=== PATIENT | male | born 1960 | race Caucasian/White ===

== ENCOUNTER 2017-07-30 08:20 | Day surgery (SDC) | payer OTHER ==
--- NOTE | 2017-07-23 10:11 | EKG REPORT ---
SEVERITY:- NORMAL ECG - SINUS RHYTHM : Confirmed by: Amol Pascual 23-Jul-2017 10:10:41
[2017-07-23 10:34] LABS: APPEARANCE,URINE CLEAR; BILIRUBIN,URINE NEGATIVE (NEGATIVE); COLOR,URINE YELLOW; GLUCOSE, URINE >=500 mg/dL (NEGATIVE); KETONES,URINE TRACE mg/dL (NEGATIVE); LEUKOCYTE ESTERASE,URINE NEGATIVE (NEGATIVE); NITRITE,URINE NEGATIVE (NEGATIVE); PROTEIN,URINE NEGATIVE (NEGATIVE); URINE SPECIFIC GRAVITY 1.029; UROBILINOGEN,URINE NEGATIVE mg/dL (<2.0)
[2017-07-23 11:02] LABS: HEMOGLOBIN 13.6 g/dL (13.5-17.0); MEAN CORPUSCULAR HEMOGLOBIN 26.4 pg (27.0-33.4); MEAN CORPUSCULAR HGB CONC 33.1 g/dL (32.0-36.0); MEAN CORPUSCULAR VOLUME 80 fl (80-97); PLATELET COUNT 309 10^3/uL (150-450); RED BLOOD COUNT 5.15 10^6/uL (4.35-5.55); RED CELL DISTRIBUTION WIDTH 15.6 % (11.5-14.0); WHITE BLOOD COUNT 7.5 10^3/uL (4.0-10.5)
[2017-07-23 11:45] LABS: ANION GAP 13 (5-19); BLOOD UREA NITROGEN 20 mg/dL (7-20); CALCIUM 9.4 mg/dL (8.4-10.2); CARBON DIOXIDE 25 mmol/L (22-30); CHLORIDE 103 mmol/L (98-107); GLUCOSE 210 mg/dL (75-110); POTASSIUM 4.9 mmol/L (3.6-5.0); SODIUM 141.3 mmol/L (137-145)
--- NOTE | 2017-07-23 17:11 | RADIOLOGY REPORT (SQ) ---
EXAM DESCRIPTION: CHEST PA/LATERAL COMPLETED DATE/TIME: 07/23/2017 5:04 pm REASON FOR STUDY: PRE OP S43.431A SUPERIOR GLENOID LABRUM LESION OF RIGHT SHOULDER, I M75.111 INCO MPLETE ROTATR-CUFF TEAR/RUPTR OF R SHOULDER, NOT COMPARISON: None. NUMBER OF VIEWS: Two view. TECHNIQUE: Frontal and lateral radiographic views of the chest acquired. LIMITATIONS: None. FINDINGS: LUNGS AND PLEURA: No opacities, masses or pneumothorax. No pleural effusion. MEDIASTINUM AND HILAR STRUCTURES: No masses. No contour abnormalities. HEART AND VASCULAR STRUCTURES: Heart enlarged without failure. Aorta normal for age. BONES: No acute findings. HARDWARE: None in the chest. OTHER: No other significant finding. IMPRESSION: CARDIAC ENLARGEMENT WITHOUT FAILURE. TECHNICAL DOCUMENTATION: JOB ID: [id number] [employer]- All Rights Reserved Reading location - IP/workstation name: [email or web address]
[~2017-07-30 08:20] MED LIST: CEFAZOLIN SODIUM 2 GM in DEXTROSE 5%-WATER 100 ML IV PRN; DEXAMETHASONE SOD PHOSPHATE INJ 4 MG/1 ML VIAL ONE; GLYCOPYRROLATE INJ 0.4 MG/2 ML VIAL ONE; LACTATED RINGERS 1000 ML IV PRN; LIDOCAINE 0.5% INJ-PF (5 MG/ML) 50 ML SDV SUBCUT PRN; LIDOCAINE 2% INJ-PF (20 MG/ML) 2 ML AMPUL ONE; NEOSTIGMINE METHYLSULFATE 10 MG/10 ML VIAL ONE; ONDANSETRON HCL INJ/PF 4 MG/2 ML SDV ONE; ROCURONIUM BROMIDE INJ 50 MG/5 ML VIAL IV ONE; SUCCINYLCHOLINE CHLORIDE INJ 200 MG/10 ML VIAL ONE
[2017-07-30] MEDS ORDERED: EPINEPHRINE INJ/PF 1 MG/1 ML AMPULE ONE (10:14)
[2017-07-30] MEDS ORDERED: BUPIVACAINE HCL 0.5 % INJ/PF 30 ML SDV ONE (10:14)
[2017-07-30] MEDS ORDERED: FENTANYL CITRATE INJ/PF 250 MCG/5 ML AMPULE ONE (10:15)
[2017-07-30] MEDS ORDERED: PROPOFOL INJ 200 MG/20 ML VIAL IV ONE (10:16)
[2017-07-30] MEDS ORDERED: MORPHINE SULFATE 10 MG/ML INJ ONE (10:16)
[2017-07-30] MEDS ORDERED: MIDAZOLAM 2 MG/2 ML INJ ONE (10:16)
[2017-07-30] MEDS ORDERED: ACETAMINOPHEN 100 ML IV ONE (10:16)
[2017-07-30] MEDS ORDERED: PROMETHAZINE HCL INJ 25 MG/1 ML VIAL IV PRN (11:54)
[2017-07-30] MEDS ORDERED: MEPERIDINE HCL/PF INJ 25 MG/1 ML DISP.SYRIN IV PRN (11:54)
[2017-07-30] MEDS ORDERED: MORPHINE SULFATE 10 MG/ML INJ IV PRN (11:54)
[2017-07-30] MEDS ORDERED: FENTANYL CITRATE INJ/PF 100 MCG/2 ML AMPUL IV PRN (11:54)
[2017-07-30] MEDS ORDERED: DIPHENHYDRAMINE HCL 50 MG/ML VIAL IV PRN (11:54)
--- NOTE | 2017-07-30 12:42 | Discharge Summary ---
Discharge Summary (SDC) - Discharge Final Diagnosis: Right rotator cuff repair and biceps tenodesis Date of Surgery: 07/30/17 Discharge Date: 07/30/17 Condition: Good Treatment or Instructions: Patient is instructed to follow up in 10-14 days. Patient instructed to remove dressing in 4 days then can shower and apply Band- Aids as needed. Patient to wear sling for comfort but okay to remove for shower and pendulum exercises. Pendulum exercises are instructed to be done 3 times a day ideally with breakfast, lunch, dinners and showers. Patient instructed to call if there is any signs of redness or drainage fevers or chills. Referrals: COLIN JOYA DO [Primary Care Provider] - Discharge Diet: As Tolerated Respiratory Treatments at Home: Deep Breathing/Coughing Discharge Activity: No Driving, No Lifting/Push/Pulling, Slowly Increase Activity, Walk Frequently Home Care Assistance: None Needed Report the Following to Your Physician Immediately: Shortness of Breath, Vomiting, Increase in Pain, Fever over 101 Degrees, Unusual Bleeding, Redness, Swelling, Warmth, Increased Soreness, Drainage-Girard, Drainage-Green, Drainage- Foul Smelling
[2017-07-30] MEDS ORDERED: HYDROMORPHONE HCL 2 MG TABLET PO PRN (12:43)
--- NOTE | 2017-07-30 12:53 | Operative Report ---
Operative Report DATE OF SURGERY: 07/30/17 PREOPERATIVE DIAGNOSIS: Partial-thickness rotator cuff and SLAP tear of the right shoulder POSTOPERATIVE DIAGNOSIS: Same OPERATION: Right shoulder arthroscopic with her cuff repair and subpectoralis biceps tenodesis SURGEON: SAI UMANA ANESTHESIA: GA TISSUE REMOVED OR ALTERED: Portion of the long head of the biceps COMPLICATIONS: None ESTIMATED BLOOD LOSS: 20 mL INTRAOPERATIVE FINDINGS: High-grade partial-thickness tear of the supraspinatus tendon and a degenerative type II SLAP tear PROCEDURE: IMPLANTS: 5.5 bio composite swivel lock DESCRIPTION OF PROCEDURE: Patient was brought to the operating room placed in supine position. After successfully induced and intubated the patient patient was placed in the beachchair position the head and endotracheal tube was secured appropriately. The right shoulder was prepped and draped in a normal surgical fashion. A timeout was done identifying the right shoulder as the correct site. After inflating the glenohumeral joint with sterile saline solution an 11 blade was used to establish the posterior portal. The arthroscope was introduced and return of fluid was seen showing that we successfully penetrated the glenohumeral joint. With the use of spinal needle we're able to catherine the anterior portal and using an 11 blade able to establish anterior portal. A cannula was introduced through the anterior portal. At this point diagnostic scope was done. At first glance patient had a type II SLAP tear and was probed showing the detachment. Also when I turned my attention to the rotator cuff was evidence of showing the partial-thickness articular sided rotator cuff tear. The articulation was intact. No loose bodies. A lateral portal was established 11 blade. Passport cannula was introduced to secure the lateral portal. 4.0mm shaver was introduced and was used to debride edges of the tear as well as bur the bone for preparation of anchor placement. Once I was satisfied with the preparation I then redirected my scope into the subacromial space. At this point we were able to visualize the bursal sided rotator cuff tear therefore we completed the tear connecting the high-grade partial bursal sided tear with the partial tearing of the anterior portion of the supraspinatus tendon. At this point through a lateral portal we were able to use a scorpion and passed the 2 strands of the fiber tape through the small rotator cuff tear that was created. Bicomposite swivel lock were used for the lateral row fixation. Lateral aspect of the humerus was then cleaned off with a shaver and electrocautery. Once identified placement of the swivel lock, I proceeded to use my awl to do my hole. This this point the sutures were adequately tensioned and secured. Swivel lock was inserted and screwed in, securing and increasing the footprint of the rotator cuff repair. Remaining strands were cut with the arthroscopic cutter. Final pictures were taking showing my repair. At this point fluid from the shoulder was removed camera and instruments were all removed. I turned my attention to the subpectoralis biceps tenodesis portion of the case. I used a 15 blade and did a inch and a half incision on the anterior aspect of the arm adjacent to the axillary fold. I used electrocautery to obtain hemostasis of the subcutaneous tissue bleed. I used Metzenbaum scissors and 2 pierced and split the fascial tissue covering the biceps and deltoid. I used then combination of my finger and 90 clamp to palpate the long head of biceps and bicipital groove and capturing hook the tendon that was tenotomized. This was pulled through my incision successfully. I used a fiber loop to then secure my muscular tendinous portion which was approximately 2 cm. The remaining biceps was cut and discarded. The loop was, and the 2 strands were then fed through the tenodesis button. These were secured and then I proceeded to use Homans to expose the side of the humeral shaft and was able to used a 4 mm spade tip guidepin to drill the anterior cortex. This was removed and then the loaded button was then inserted and then removing the disposable portion was able to flip the button and securing the biceps onto the anterior cortex of the humerus. Half hitch knots were done to further secure the biceps. Remaining strand was cut with a fiber wire scissors. I used 0 Vicryl to approximate the subcutaneous tissue. I used 3-0 nylon to do closure of my incision. I proceeded to close my portal sites with 3 -0 nylon. Xeroform 4 x 4 dressing followed by ABDs pads and Medipore tape was applied. Patient was placed in a sling and returned to supine position where he was successfully extubated and taken to PACU in stable condition.
[2017-07-30] MEDS: HYDROMORPHONE HCL INJ/PF 2 MG/ML AMPULE ONE ×3 (13:00→13:40)
[2017-07-30] MEDS ORDERED: HYDROMORPHONE HCL INJ/PF 2 MG/ML AMPULE ONE (13:29)
[2017-07-30] MEDS ORDERED: PROMETHAZINE HCL INJ 25 MG/1 ML VIAL ONE (14:06)
[2017-07-30] MEDS ORDERED: KETOROLAC TROMETHAMINE INJ/PF 30 MG/1 ML SDV ONE (14:06)
[2017-07-30 16:38] VITALS: BP 117/79
== END 2017-07-30 16:10 | disposition home or self-care (01) ==
LOC: OROUT 08:20
PROVIDERS: ATTEND Orthopaedic Surgery
DX: S43.431A Superior glenoid labrum lesion of right shoulder, initial encounter (principal); X58.XXXA Exposure to other specified factors, initial encounter; M75.111 Incomplete rotator cuff tear or rupture of right shoulder, not specified as traumatic; M79.7 Fibromyalgia; I20.9 Angina pectoris, unspecified; G47.33 Obstructive sleep apnea (adult) (pediatric); I10 Essential (primary) hypertension; F17.210 Nicotine dependence, cigarettes, uncomplicated; Z79.899 Other long term (current) drug therapy; Z88.8 Allergy status to other drugs, medicaments and biological substances
CPT/HCPCS: 93005; 36415; 82962; 85027; 80048; 81001; 71046; 93010; 29827; 24340; C1713 ×2; J2250; J3490 ×3; J0690; J1100; J0171; J3010; J1885; J2270; J1170; J2550; J0330; J2405; J2704; J0131; 1630

== ENCOUNTER 2017-08-02 20:19 | Emergency (ER) | payer OTHER ==
--- NOTE | 2017-08-02 21:17 | ER Document Report ---
ED Extremity Problem, Upper - General Chief Complaint: Arm Pain/ infection Stated Complaint: ARM PAIN Time Seen by Provider: 08/02/17 21:07 Mode of Arrival: Ambulatory Information source: Patient TRAVEL OUTSIDE OF THE [place] IN LAST 30 DAYS: No - HPI Patient complains to provider of: Other - Left arm pain Recent injury: No Notes: Patient is here with complaints of left arm pain. The patient had right shoulder surgery done 5 days ago. He had an IV placed in his left AC. Today he noticed redness, swelling, tenderness to the left AC area. No swelling to the remainder of the arm. No chest pain or shortness of breath. No fever. No nausea, vomiting, diarrhea. No numbness, Gianni, weakness. Pain is worse with touching the area and flex the arm, better with rest. No other complaints at this time. He states that his right shoulder feels great. - Related Data Allergies/Adverse Reactions: piroxicam [From Feldene] Allergy (Severe, Verified 07/23/17 11:47) Blisters Past Medical History - Social History Smoking Status: Unknown if Ever Smoked Family History: Reviewed & Not Pertinent - Past Medical History Cardiac Medical History: Reports: Hx Hypertension Denies: Hx Coronary Artery Disease, Hx Heart Attack Pulmonary Medical History: Reports: Hx Bronchitis Denies: Hx Asthma, Hx COPD, Hx Pneumonia Neurological Medical History: Denies: Hx Cerebrovascular Accident, Hx Seizures Musculoskeltal Medical History: Denies Hx Arthritis - Immunizations Hx Diphtheria, Pertussis, Tetanus Vaccination: Yes Review of Systems - Review of Systems -: Yes All other systems reviewed and negative Physical Exam - Vital signs Vitals: Temp Pulse Resp BP Pulse Ox 99.6 F 112 H 20 156/84 H 95 08/02/17 20:58 08/02/17 20:58 08/02/17 20:58 08/02/17 20:58 08/02/17 20:58 - Notes Notes: GENERAL: alert, cooperative, nontoxic, no distress. HEAD: normocephalic, atraumatic EYES: conjunctiva pink without discharge, no external redness or swelling. EARS: no external swelling, no external redness NOSE: atraumatic, no external swelling MOUTH/THROAT: mucous membranes moist and pink, posterior pharynx without erythema, swelling, exudate. No trismus or drooling. NECK: soft, supple, full range of motion, no meningismus. CHEST: no distress, lungs clear and equal throughout. No wheezing, rales, rhonchi. CARDIAC: regular rate and rhythm, no murmur, normal capillary refill, normal pulses. No peripheral edema noted. ABDOMEN: Soft, nontender. BACK: full range of motion, no CVA tenderness. EXTREMITIES: full range of motion of all extremities. Patient is noted to have a red tender swollen area to the left AC near the site of previous IV. No fluctuance. No drainage. Normal pulse and sensation distally. Compartments are soft. NEURO: alert and oriented x 3, no focal deficits, full range of motion of all extremities. PYSCH: appropriate mood, affect. Patient is cooperative. SKIN: pink, warm, dry, no rash. Course - Re-evaluation Re-evalutation: 08/02/17 22:04 Patient is nontoxic appearing with stable vitals. The patient is here with complaints of red swollen area in the left AC where he had replaced 4-5 days ago when having right shoulder surgery. He denies any fever. Complains of some mild pain in the area. No chest pain or shortness of breath. He denies any numbness, tingling, weakness. On exam he is noted to have a small area of redness and tenderness with mild swelling to the left AC near the site of recent IV. There is no fluctuance. Normal pulse and sensation distally. No significant cellulitis. Compartments are soft. Venous Doppler of the left upper extremity shows no DVT, no fluid collection or abscess. There is sign of thrombus in the cephalic vein consistent with superficial thrombophlebitis. Patient is already on an aspirin as well as Celebrex. At this point the patient can be discharged home with instructions to apply warm compresses to the sore area and keep a close eye on it. He can follow-up if he develops any worsening pain, fever, redness, numbness, tingling, weakness, or for any further concerns. The patient's emergency department workup and current diagnosis were explained to the patient and or family. Follow-up instructions were provided. Medications if prescribed were discussed. Instructions for when to return to the emergency department including specific worrisome symptoms were discussed with the patient and/or family. The patient is noted to have elevated blood pressure during today's emergency department visit. The patient was informed of this finding. The patient was instructed that this may be related to pre-hypertension and requires further evaluation with a primary care provider. The patient has no hypertensive symptoms at this time. - Vital Signs Vital signs: Temp Pulse Resp BP Pulse Ox 99.6 F 112 H 20 156/84 H 95 08/02/17 20:58 08/02/17 20:58 08/02/17 20:58 08/02/17 20:58 08/02/17 20:58 - Diagnostic Test Radiology reviewed: Image reviewed, Reports reviewed - Venous Doppler of the left upper extremity shows clot within the cephalic vein consistent with superficial thrombophlebitis. No DVT, no abscess. Discharge - Discharge Clinical Impression: Arm thromboembolism, superficial, acute Qualifiers: Laterality: left Qualified Code(s): I82.612 - Acute embolism and thrombosis of superficial veins of left upper extremity Condition: Stable Disposition: HOME, SELF-CARE Instructions: Superficial Phlebitis ([facility]) Additional Instructions: Continue taking her Celebrex as well as her aspirin. Apply warm compresses to the sore area. If not better in 1 week, sooner for worsening pain, fever, redness, drainage, numbness, tingling, weakness, any further concerns. Your blood pressure was elevated during today's visit. Have this rechecked with your doctor. Forms: Elevated Blood Pressure
--- NOTE | 2017-08-02 21:55 | RADIOLOGY REPORT (SQ) ---
EXAM DESCRIPTION: VENOUS UNILATERAL UPPER COMPLETED DATE/TIME: 08/02/2017 9:44 pm REASON FOR STUDY: LEFT ARM SWELLING COMPARISON: None. TECHNIQUE: Dynamic and static brennan scale and color images acquired of the left arm venous system. Se lected spectral images acquired with additional compression and augmentation maneuvers. The contralat eral subclavian vein and internal jugular vein were also imaged. Images stored on PACS. LIMITATIONS: None. FINDINGS: INTERNAL JUGULAR VEIN: Normal phasicity, compression, augmentation. No visualized echogeni c material on brennan scale. No defects on color images. Comparison opposite side normal. SUBCLAVIAN VEIN: Normal compression, augmentation. No visualized echogenic material on brennan scale. No defects on color images. AXILLARY VEIN: Normal compression, augmentation. No visualized echogenic material on brennan scale. No d efects on color images. BRACHIAL VEIN: Normal compression, augmentation. No visualized echogenic material on brennan scale. No d efects on color images. BASILIC VEIN: Normal compression, augmentation. No visualized echogenic material on brennan scale. No de fects on color images. CEPHALIC VEIN: Thrombus in the antecubital fossa at the site of IV line. OTHER: No other significant finding. CONTRALATERAL SUBCLAVIAN VEIN AND INTERNAL JUGULAR VEIN: Normal phasicity, compression and augmentation. No visualized echogenic material on brennan scale. No de fects on color images. IMPRESSION: THROMBUS IN THE CEPHALIC VEIN IN THE ANTECUBITAL FOSSA AT THE SITE OF IV LINE. REMAINDE R OF THE VESSELS ARE PATENT. TECHNICAL DOCUMENTATION: JOB ID: [id number] [employer]- All Rights Reserved Reading location - IP/workstation name: [email or web address]
[2017-08-02 22:37] VITALS: BP 148/95
== END 2017-08-02 22:37 | disposition home or self-care (01) ==
LOC: ER 20:19
DX: I82.612 Acute embolism and thrombosis of superficial veins of left upper extremity (principal); M79.602 Pain in left arm; I10 Essential (primary) hypertension
CPT/HCPCS: 93971; 99284

== ENCOUNTER 2018-06-11 08:22 | Day surgery (SDC) | payer OTHER, MEDICARE ==
[2018-06-02 10:38] LABS: ABSOLUTE BASOPHILS # (AUTO) 0.1 10^3/uL (0.0-0.2); ABSOLUTE EOSINOPHILS # (AUTO) 0.3 10^3/uL (0.0-0.6); ABSOLUTE LYMPHOCYTES (AUTO) 1.9 10^3/uL (0.5-4.7); ABSOLUTE MONOCYTES (AUTO) 0.7 10^3/uL (0.1-1.4); ABSOLUTE NEUT (AUTO) 5.1 10^3/uL (1.7-8.2); BASOPHILS % (AUTO) 1.4 % (0-2); EOSINOPHILS % (AUTO) 3.2 % (0-6); LYMPHOCYTES % (AUTO) 23.5 % (13-45); MEAN CORPUSCULAR HEMOGLOBIN 28.9 pg (27.0-33.4); MEAN CORPUSCULAR HGB CONC 34.2 g/dL (32.0-36.0); MEAN CORPUSCULAR VOLUME 84 fl (80-97); MONOCYTES % (AUTO) 8.5 % (3-13); PLATELET COUNT 226 10^3/uL (150-450); RED BLOOD COUNT 5.22 10^6/uL (4.35-5.55); RED CELL DISTRIBUTION WIDTH 14.3 % (11.5-14.0); SEGMENTED NEUTROPHILS % (AUTO) 63.4 % (42-78); TOTAL CELLS COUNTED % (AUTO) 100 %
[2018-06-02 10:46] LABS: ANION GAP 8 (5-19); BLOOD UREA NITROGEN 21 mg/dL (7-20); CALCIUM 10.1 mg/dL (8.4-10.2); CARBON DIOXIDE 29 mmol/L (22-30); CHLORIDE 104 mmol/L (98-107); GLUCOSE 76 mg/dL (75-110); POTASSIUM 4.8 mmol/L (3.6-5.0); SODIUM 140.9 mmol/L (137-145)
--- NOTE | 2018-06-02 21:23 | EKG REPORT ---
SEVERITY:- NORMAL ECG - SINUS RHYTHM : Confirmed by: Nasima Glass MD 02-Jun-2018 21:22:54
[~2018-06-11 08:22] MED LIST changes: -CEFAZOLIN SODIUM 2 GM in DEXTROSE 5%-WATER 100 ML IV PRN; -DEXAMETHASONE SOD PHOSPHATE INJ 4 MG/1 ML VIAL ONE; -GLYCOPYRROLATE INJ 0.4 MG/2 ML VIAL ONE; -LIDOCAINE 2% INJ-PF (20 MG/ML) 2 ML AMPUL ONE; -NEOSTIGMINE METHYLSULFATE 10 MG/10 ML VIAL ONE; -ONDANSETRON HCL INJ/PF 4 MG/2 ML SDV ONE; -ROCURONIUM BROMIDE INJ 50 MG/5 ML VIAL IV ONE; -SUCCINYLCHOLINE CHLORIDE INJ 200 MG/10 ML VIAL ONE
[2018-06-11] MEDS ORDERED: METOCLOPRAMIDE HCL INJ/PF 10 MG/2 ML SDV ONE (11:10)
[2018-06-11] MEDS ORDERED: MIDAZOLAM 2 MG/2 ML INJ ONE ×2 (11:10→12:21)
[2018-06-11] MEDS ORDERED: ALBUTEROL SULFATE 0.083% NEB 2.5 MG/3 ML AMPUL NEB ONE (11:10)
[2018-06-11] MEDS ORDERED: FAMOTIDINE INJ/PF 20 MG/2 ML SDV IV ONE (11:10)
[2018-06-11] MEDS ORDERED: FENTANYL CITRATE INJ/PF 100 MCG/2 ML AMPUL ONE (12:21)
[2018-06-11] MEDS ORDERED: PROPOFOL INJ 200 MG/20 ML VIAL IV ONE (12:21)
[2018-06-11] MEDS ORDERED: BUPIVACAINE INJ/PF LIPOSOME/PF 266 MG/20 ML SDV ONE (12:32)
[2018-06-11] MEDS ORDERED: LIDOCAINE 2% JELLY 30 ML TUBE ONE (12:32)
[2018-06-11] MEDS ORDERED: BACITRACIN ZINC OINTMENT 15 GM ONE (12:32)
[2018-06-11] MEDS ORDERED: ONDANSETRON HCL INJ/PF 4 MG/2 ML SDV IV PRN (13:45)
[2018-06-11] MEDS ORDERED: DIPHENHYDRAMINE HCL 50 MG/ML VIAL IV PRN (13:45)
[2018-06-11] MEDS ORDERED: MORPHINE SULFATE 10 MG/ML INJ IV PRN (13:45)
[2018-06-11] MEDS ORDERED: PROMETHAZINE HCL INJ 25 MG/1 ML VIAL IV PRN ×2 (13:45)
[2018-06-11] MEDS ORDERED: MEPERIDINE HCL/PF INJ 25 MG/1 ML DISP.SYRIN IV PRN (13:45)
[2018-06-11] MEDS ORDERED: FENTANYL CITRATE INJ/PF 100 MCG/2 ML AMPUL IV PRN ×3 (13:45)
[2018-06-11] MEDS ORDERED: OXYCODONE-ACETAMINOPHEN 5-325 MG TABLET PO PRN ×2 (13:45)
[2018-06-11] MEDS: FENTANYL CITRATE INJ/PF 100 MCG/2 ML AMPUL ONE ×2 (13:55→14:00)
[2018-06-11] MEDS ORDERED: KETOROLAC TROMETHAMINE INJ/PF 30 MG/1 ML SDV ONE (13:57)
[2018-06-11] MEDS ORDERED: ACETAMINOPHEN 1,000 MG/100 ML RTUPB IV ONE (13:58)
[2018-06-11] MEDS ORDERED: LIDOCAINE 2% INJ-PF (20 MG/ML) 2 ML AMPUL ONE (14:18)
[2018-06-11] MEDS ORDERED: OXYCODONE HCL IR 5 MG TABLET ONE (14:39)
[2018-06-11] MEDS ORDERED: HYDROCODONE/ACETAMINOPHEN 10-325 MG TABLET PO PRN (14:50)
[2018-06-11 18:42] VITALS: BP 146/86
--- NOTE | 2018-06-12 10:37 | Discharge Summary ---
Discharge Summary (SDC) - Discharge Final Diagnosis: Internal hemorrhoids, external anal skin tags. Date of Surgery: 06/11/18 Discharge Date: 06/11/18 Condition: Stable Forms: ASU Anesthesia D/C Instruction, Discharge POC-Surgical Service Referrals: BRADLEY SCHULTE MD [ACTIVE STAFF] - (Follow up in 2 weeks. call for appt time.) [facility] [Primary Care Provider] - Discharge Diet: As Tolerated Respiratory Treatments at Home: Deep Breathing/Coughing, CPAP Discharge Activity: Activity As Tolerated, Balance Activity w/Rest Home Care Assistance: Provided by Family Report the Following to Your Physician Immediately: Shortness of Breath, Nausea, Vomiting, Increase in Pain, Fever over 101 Degrees, Unusual Bleeding, Redness, Swelling, Warmth, Drainage-Yellow, IV Site Infection Signs
--- NOTE | 2018-06-12 10:41 | Operative Report ---
Nonrecallable Operative Report DATE OF SURGERY: 06/11/18 PREOPERATIVE DIAGNOSIS: 1. External anal skin tags. 2. Internal hemorrhoids. POSTOPERATIVE DIAGNOSIS: Same as above OPERATION: 1. Rubber band ligation of internal hemorrhoids x4. 2. Excision of external anal skin tag x2 (12:00 and 3 o'clock position) SURGEON: BRADLEY SCHULTE ANESTHESIA: Spinal TISSUE REMOVED OR ALTERED: Anal skin tag x2 COMPLICATIONS: None apparent ESTIMATED BLOOD LOSS: Minimal PROCEDURE: Procedure in detail: After informed consent was obtained, the patient was brought to the operating room and laid in the right lateral decubitus position. The Ramesh-Stoll retractor was inserted into the rectum after an anal block was created with Exparel. Enlarged internal hemorrhoids were found circumferentially. 4 rubber bands were placed on the enlarged internal hemorrhoids. This portion of the procedure was then concluded. Patient had 2 enlarged, inflamed skin tags (residual from external hemorrhoids). The 12:00 anal skin tag was elevated and excised with a 15 blade scalpel. The defect was sutured closed using 3-0 chromic suture in simple running fashion. The 3:00 skin tag was treated in similar fashion. It was elevated and excised with a 15 blade scalpel. The defect was then closed using 3-0 chromic suture in simple running fashion. A dressing was then placed, and the procedure was concluded. All sponge, instrument, and needle counts were correct x2. Condition: Stable.
== END 2018-06-11 18:40 | disposition home or self-care (01) ==
LOC: OROUT 08:22
PROVIDERS: ATTEND Surgery
DX: K64.4 Residual hemorrhoidal skin tags (principal); K64.8 Other hemorrhoids; K62.89 Other specified diseases of anus and rectum; Z86.010 Personal history of colon polyps; Z88.6 Allergy status to analgesic agent; I10 Essential (primary) hypertension; G47.30 Sleep apnea, unspecified; K59.00 Constipation, unspecified; K62.5 Hemorrhage of anus and rectum; L29.0 Pruritus ani; F17.210 Nicotine dependence, cigarettes, uncomplicated; Z79.1 Long term (current) use of non-steroidal anti-inflammatories (NSAID); Z79.82 Long term (current) use of aspirin; Z79.899 Other long term (current) drug therapy; Z79.51 Long term (current) use of inhaled steroids
CPT/HCPCS: 93010; 93005; 36415; 85025; 80048; 88304 ×2; 46250; J2250; J3010; J1885; J2765; J2704; S0028; J0131; C9290; J3490; 902

== ENCOUNTER 2018-10-29 08:10 | Day surgery (SDC) | payer OTHER, MEDICARE ==
--- NOTE | 2018-10-22 10:36 | RADIOLOGY REPORT (SQ) ---
EXAM DESCRIPTION: CHEST PA/LATERAL COMPLETED DATE/TIME: 10/22/2018 10:06 am REASON FOR STUDY: PRE-OP,COUGH R13.10 DYSPHAGIA, UNSPECIFIED K21.9 GASTRO-ESOPHAGEAL REFLUX DISEAS E WITHOUT ESOPHAGITIS COMPARISON: None. NUMBER OF VIEWS: Two view. TECHNIQUE: Frontal and lateral radiographic views of the chest acquired. LIMITATIONS: None. FINDINGS: LUNGS AND PLEURA: No opacities, masses or pneumothorax. No pleural effusion. MEDIASTINUM AND HILAR STRUCTURES: No masses. No contour abnormalities. HEART AND VASCULAR STRUCTURES: Heart enlarged without failure. Aorta normal for age. BONES: No acute findings. HARDWARE: None in the chest. OTHER: No other significant finding. IMPRESSION: CARDIAC ENLARGEMENT WITHOUT FAILURE. TECHNICAL DOCUMENTATION: JOB ID: [id number] [employer]- All Rights Reserved Reading location - IP/workstation name: [email or web address]
--- NOTE | 2018-10-23 10:19 | EKG REPORT ---
SEVERITY:- ABNORMAL ECG - SINUS RHYTHM NONSPECIFIC INTRAVENTRICULAR CONDUCTION DELAY : Confirmed by: Amol Pascual 23-Oct-2018 10:18:16
[~2018-10-29 08:10] MED LIST changes: -LIDOCAINE 0.5% INJ-PF (5 MG/ML) 50 ML SDV SUBCUT PRN
[2018-10-29] MEDS ORDERED: MIDAZOLAM 2 MG/2 ML INJ ONE (12:24)
[2018-10-29] MEDS ORDERED: PROPOFOL INJ 200 MG/20 ML VIAL IV ONE (12:24)
[2018-10-29] MEDS ORDERED: ONDANSETRON HCL INJ/PF 4 MG/2 ML SDV IV PRN (12:28)
[2018-10-29] MEDS ORDERED: PROMETHAZINE HCL INJ 25 MG/1 ML VIAL IV PRN ×2 (12:28)
[2018-10-29] MEDS ORDERED: MEPERIDINE HCL/PF INJ 25 MG/1 ML DISP.SYRIN IV PRN (12:28)
[2018-10-29] MEDS ORDERED: DIPHENHYDRAMINE HCL 50 MG/ML VIAL IV PRN (12:28)
[2018-10-29] MEDS ORDERED: FENTANYL CITRATE INJ/PF 100 MCG/2 ML AMPUL IV PRN ×3 (12:28)
--- NOTE | 2018-10-29 13:48 | Operative Report ---
Nonrecallable Operative Report DATE OF SURGERY: 10/29/18 PREOPERATIVE DIAGNOSIS: Dysphagia POSTOPERATIVE DIAGNOSIS: 1. Dysphasia. 2. Antral gastritis, mild. 3. Mild duodenitis. 4. No evidence of hiatal hernia, reflux esophagitis, or other distal esophageal abnormality. OPERATION: EGD with biopsy. SURGEON: BRADLEY SCHULTE ANESTHESIA: LMAC TISSUE REMOVED OR ALTERED: 1. Biopsy of antrum. 2. Biopsy of duodenal bulb. COMPLICATIONS: None apparent. ESTIMATED BLOOD LOSS: Minimal. PROCEDURE: Procedure in detail: After informed consent was obtained, the patient was brought to the operating room and laid in the left lateral decubitus position. The endoscope was passed down the oropharynx, down the esophagus, and into the stomach. The stomach was insufflated with air. The scope was pushed into the antrum, where mild antral gastritis was identified. The scope was pushed through the pylorus into the first and second portions of the duodenum. The second portion of duodenum appeared normal, however the first portion of the duodenum appeared mildly inflamed. Biopsy was taken in the duodenal bulb. The scope was withdrawn into the antrum, where biopsy was taken to rule out H. pylori infection. A retroflexion maneuver was performed. No large hiatal hernias could be identified. The scope was then withdrawn into the distal esophagus. No reflux esophagitis could be identified. The scope was then withdrawn up the esophagus. The esophagus appeared spasmodic, however did not appear significantly tortuous or distorted. The scope was then removed from the oropharynx, and the procedure was concluded. All sponge, instrument, and needle counts were correct. Condition: Stable.
--- NOTE | 2018-10-29 13:51 | Discharge Summary ---
Discharge Summary (SDC) - Discharge Final Diagnosis: Dysphasia Date of Surgery: 10/29/18 Discharge Date: 10/29/18 Condition: Stable Treatment or Instructions: Discharge home. Diet as tolerated. Activity: As tolerated. Follow-up with me in 2 weeks. Referrals: [facility] [Primary Care Provider] - Discharge Diet: As Tolerated Respiratory Treatments at Home: Deep Breathing/Coughing, Incentive Spirometer Discharge Activity: Activity As Tolerated Home Care Assistance: None Needed Report the Following to Your Physician Immediately: Shortness of Breath, Nausea, Vomiting, Increase in Pain, Fever over 101 Degrees, Unusual Bleeding, Redness
[2018-10-29] MEDS ORDERED: KETOROLAC TROMETHAMINE INJ/PF 30 MG/1 ML SDV ONE (14:00)
[2018-10-29 16:06] VITALS: BP 131/91
== END 2018-10-29 15:30 | disposition home or self-care (01) ==
LOC: END 08:10
PROVIDERS: ATTEND Surgery
DX: K29.50 Unspecified chronic gastritis without bleeding (principal); K29.80 Duodenitis without bleeding; I10 Essential (primary) hypertension; K21.9 Gastro-esophageal reflux disease without esophagitis; G47.30 Sleep apnea, unspecified; K62.5 Hemorrhage of anus and rectum; K64.4 Residual hemorrhoidal skin tags; Z86.010 Personal history of colon polyps; F17.210 Nicotine dependence, cigarettes, uncomplicated; Z79.899 Other long term (current) drug therapy; Z79.82 Long term (current) use of aspirin; Z79.51 Long term (current) use of inhaled steroids
CPT/HCPCS: 43239; 93005; 88305 ×2; 71046; 93010; J2250; J1885; J2704; 731

== ENCOUNTER → 2019-11-03 | Outpatient (CLI) | payer MEDICARE, OTHER ==
--- NOTE | 2019-11-03 11:43 | RADIOLOGY REPORT (SQ) ---
EXAM DESCRIPTION: CHEST PA/LATERAL IMAGES COMPLETED DATE/TIME: 11/03/2019 11:20 am REASON FOR STUDY: DYSPNEA, UNSPECIFIED R06.00 DYSPNEA, UNSPECIFIED COMPARISON: 10/22/2018 NUMBER OF VIEWS: Two view. TECHNIQUE: Frontal and lateral radiographic views of the chest acquired. LIMITATIONS: None. FINDINGS: LUNGS AND PLEURA: No opacities, masses or pneumothorax. No pleural effusion. MEDIASTINUM AND HILAR STRUCTURES: No masses. No contour abnormalities. HEART AND VASCULAR STRUCTURES: Heart enlarged without failure. Aorta normal for age. BONES: No acute findings. HARDWARE: None in the chest. OTHER: No other significant finding. IMPRESSION: CARDIAC ENLARGEMENT WITHOUT FAILURE. TECHNICAL DOCUMENTATION: JOB ID: [id number] [email or web address]- All Rights Reserved Reading location - IP/workstation name: [email or web address]
== END ==
LOC: OD 11:08
PROVIDERS: ATTEND Internal Medicine Pulmonary Disease
DX: I51.7 Cardiomegaly (principal); R06.00 Dyspnea, unspecified
CPT/HCPCS: 71046